=== PATIENT | female | born 1975 | race African-American/Black ===

== ENCOUNTER 2016-11-26 17:43 | Emergency (ER) | payer MEDICAID ==
[~2016-11-26] VITALS: Ht 165.1 cm; Wt 48.0 kg
[2016-11-26 17:45] VITALS: BP 142/92
[2016-11-26] MEDS ORDERED: CYCLOBENZAPRINE 10MG TABLET PO ONE (18:15)
[2016-11-26] MEDS ORDERED: ACETAMINOPHEN 325MG TABLET PO ONE (18:15)
== END 2016-11-26 19:23 | disposition home or self-care (01) ==
LOC: ER 17:56
DX: M62.838 Other muscle spasm (principal); S80.01XA Contusion of right knee, initial encounter; J45.909 Unspecified asthma, uncomplicated; F31.89 Other bipolar disorder; F20.9 Schizophrenia, unspecified; F17.200 Nicotine dependence, unspecified, uncomplicated; V89.2XXA Person injured in unspecified motor-vehicle accident, traffic, initial encounter; Y93.89 Activity, other specified; Y92.89 Other specified places as the place of occurrence of the external cause; Y99.8 Other external cause status
CPT/HCPCS: 73562; 81025; 99284